=== PATIENT | female | born 1970 | race Caucasian/White ===

== ENCOUNTER 2020-08-23 15:08 | Outpatient (CLI) | payer OTHER, SELFPAY ==
--- NOTE | 2020-08-23 15:14 | MM_ITS ---
WS: [id number] BILATERAL DIGITAL SCREENING MAMMOGRAPHY WITH CAD CLINICAL INFORMATION: SCREENING HISTORY: Screening mammogram. Left arm. Soreness COMPARISON: 019 TECHNIQUE: Bilateral CC and MLO views. FINDINGS: The breasts are composed of heterogeneous fibroglandular density tissue, which can limit the detectio n of small underlying mass lesions. Slightly nodular breast tissue bilaterally is unchanged. No suspi cious mass, asymmetry, calcifications, or architectural distortion. No evidence of malignancy. MM/[id number] IMPRESSION: BI-RADS: 2-Benign FOLLOW UP: 1 Year Follow-up Recommend return to annual screening mammography.
== END 2020-08-23 15:09 | disposition home or self-care (01) ==
LOC: RADSHAW 15:12
PROVIDERS: PCP Nurse Practitioner Family; Visit Provider Nurse Practitioner Family
DX: Z12.31 Encounter for screening mammogram for malignant neoplasm of breast (principal)
CPT/HCPCS: 77067

== ENCOUNTER → 2023-06-30 10:22 | Outpatient (BNVA) | payer OTHER, SELFPAY | PROVIDERS: PCP Nurse Practitioner Family; Visit Provider Emergency Medicine | DX: J06.9 Acute upper respiratory infection, unspecified (principal); U07.1 COVID-19 | CPT/HCPCS: 87426 ==